=== PATIENT | male | born 1940 ===

== ENCOUNTER 2018-04-22 05:28 | Inpatient (IN) | payer OTHER ==
--- NOTE | 2018-04-10 13:53 | GHP ---
[f rep st] PREOP HISTORY AND PHYSICAL DATE OF ADMISSION: 04/22/2018 He will be an a.m. admission for surgery on April 22, 2018. PROBLEM: Right hip severe degenerative arthritis. HISTORY OF PRESENT ILLNESS: The patient is a 77-year-old man admitted for a right total hip arthropl asty. He has had progressive pain in the right hip for the past 2 or 3 years. He has seen several d octors who told him he needed a total hip replacement. He has been living with the pain. His activi ties are now significantly restricted because of the pain. He has trouble putting on his shoes and s ocks. He has tried various conservative measures, but the pain has been progressive. His quality of life has been severely affected. He is admitted for a right total hip arthroplasty. PAST MEDICAL HISTORY: Good general health. No history of heart disease, DVT, hepatitis, sleep apnea , or bleeding problems. CURRENT MEDICATIONS: Aspirin 325 mg p.o. daily. Flomax daily. ALLERGIES: Drug allergy: None. Metal allergy: None. Latex allergy: None. SOCIAL HISTORY: The patient is a retired [employer] professor. He does not smoke cigarettes and d rinks wine daily. FAMILY HISTORY: Positive for heart disease. PHYSICAL EXAMINATION: VITAL SIGNS: Height 6 feet, weight 200 pounds, BMI 27.1. EYES: He has had b ilateral cataract surgery. Pupils are round and reactive. MOUTH: Good oral hygiene. No loose teet h. CHEST: Clear. HEART: Regular rhythm, no murmurs. EXTREMITIES: Pertinent findings are limited to his right hip. He has full hip extension and 100 degrees of flexion, 30 degrees of external rota tion, 0 degrees of internal rotation, abduction 5 degrees. IMAGING: His films show very severe degenerative arthritis of the right hip. He is bone on bone. H e has eroded and flattened his femoral head. Extensive osteophytes are present. He is a few millime ters short on the right. He has mild degenerative arthritis in his left hip. IMPRESSION ON ADMISSION: Right hip advanced degenerative arthritis. PLAN: He will undergo a right total hip arthroplasty. The surgery has been described to him, includ ing the risks, complications, expectations, and recovery time. I have discussed with him the risk of dislocation, leg length inequality, infection, and sciatic nerve injury. All his questions have bee n answered, and he consents to surgery. [facility] /[id number]/MODL
[~2018-04-22 05:28] MED LIST: POVIDONE-IODINE 20 ML in SODIUM CL IRRIG SOLUTION 500 ML IRR ONE; ROPIVACAINE 0.2% 80 MG, EPINEPHrine 0.2 MG, KETOROLAC TROMETHAMINE 30 MG in SYRINGE 0 ML IU ONE; TRANEXAMIC ACID 1,000 MG in NS 100 ML IV ONE
[2018-04-22] MEDS ORDERED: GABAPENTIN 300 MG CAP PO ONE (05:46)
[2018-04-22] MEDS ORDERED: ACETAMINOPHEN 325 MG TAB PO ONE (05:46)
[2018-04-22] MEDS ORDERED: DEXAMETHASONE 4 MG/ML VIAL IVP ONE (05:46)
[2018-04-22] MEDS ORDERED: ONDANSETRON 4 MG/2 ML VIAL IVP ONE (05:46)
[2018-04-22] MEDS ORDERED: FAMOTIDINE 20 MG TAB PO ONE (05:46)
[2018-04-22] MEDS ORDERED: ceFAZolin 2 GM/DEXTROSE 100 ML IV ONE (05:46)
[2018-04-22] MEDS ORDERED: LR 1,000 ML IV ONE ×2 (05:51→06:03)
[2018-04-22] MEDS ORDERED: DEXAMETHASONE 4 MG/ML VIAL ONE (06:30)
[2018-04-22] MEDS ORDERED: ceFAZolin 1 GM/5 ML SYR ONE (06:43)
--- NOTE | 2018-04-22 07:00 | PDHPUP ---
History & Physical Update H&P update statement: This history and physical update is based on an assessment of the patient which was completed after admission or registration (within 24 hours), but prior to the surgery/procedure. H&P update: H&P reviewed & patient examined
--- NOTE | 2018-04-22 07:04 | PDANEPAE ---
ANE Past Medical History - Cardiovascular History Hx Hypertension: No Hx Arrhythmias: No Hx Chest Pain: No Hx Coronary Artery / Peripheral Vascular Disease: No Hx CHF / Valvular Disease: No Hx Palpitations: No - Pulmonary History Hx COPD: No Hx Asthma/Reactive Airway Disease: No Hx Recent Upper Respiratory Infection: No Hx Oxygen in Use at Home: No Hx Sleep Apnea: No Sleep Apnea Screening Result - Last Documented: Negative - Neurologic History Hx Cerebrovascular Accident: No Hx Seizures: No Hx Dementia: No - Endocrine History Hx Diabetes: No - Renal History Hx Renal Disorders: Yes Renal History Comment: BPH - Liver History Hx Hepatic Disorders: No - Neurological & Psychiatric Hx Hx Neurological and Psychiatric Disorders: No - Cancer History Hx Cancer: No - Congenital Disorder History Hx Congenital Disorders: No - GI History Hx Gastrointestinal Disorders: No - Other Health History Other Health History: WEARS GLASSES - Chronic Pain History Chronic Pain: Yes (RIGHT HIP) - Surgical History Prior Surgeries: RIGHT HAND REPAIR 3-4 YRS AGO ANE Review of Systems Review of Systems: - Exercise capacity METS (RN): 4 METS ANE Patient History - Allergies Allergies/Adverse Reactions: No Known Allergies Allergy (Verified 04/11/18 14:39) - Home Medications Home Medications: Aspirin [Aspirin 81mg (*)] 81 mg PO DAILY 04/10/18 [Last Taken 03/22/18] Tamsulosin HCl [Flomax 0.4 MG (*)] 0.4 mg PO DAILY 04/10/18 [Last Taken 04/22/18 ] - NPO status NPO Since - Liquids (Date): 04/21/18 NPO Since - Liquids (Time): 20:30 NPO Since - Solids (Date): 04/21/18 NPO Since - Solids (Time): 20:00 - Smoking Hx Smoking Status: Never smoked - Family Anes Hx Family Hx Anesthesia Complications: NONE ANE Labs/Vital Signs - Vital Signs Blood Pressure: 109/67 Heart Rate: 65 Respiratory Rate: 16 O2 Sat (%): 93 Height: 182.88 cm Weight: 90.718 kg ANE Physical Exam - Airway Mallampati Score: Class 2 - ASA Status ASA Status: II ANE Anesthesia Plan Anesthesia Plan: spinal
[2018-04-22] MEDS ORDERED: PROPOFOL/EMULSION 500 MG/50 ML BOTTLE IV ONE (07:08)
[2018-04-22] MEDS ORDERED: MIDAZOLAM 2 MG/2 ML VIAL ONE (07:08)
[2018-04-22] MEDS ORDERED: ROPIVACAINE 0.2% 80 MG, EPINEPHrine 0.2 MG, KETOROLAC TROMETHAMINE 30 MG in SYRINGE 0 ML IU ONE (07:15)
[2018-04-22] MEDS ORDERED: POVIDONE-IODINE 20 ML in SODIUM CL IRRIG SOLUTION 500 ML IRR ONE (07:15)
[2018-04-22] MEDS ORDERED: TRANEXAMIC ACID 1,000 MG in NS 100 ML IV ONE (07:15)
[2018-04-22] MEDS ORDERED: PHENYLEPHRINE HCL 100 MCG/ML SYR ONE (07:37)
[2018-04-22] MEDS ORDERED: ePHEDrine SULFATE 25 MG/5 ML SYR ONE (08:08)
[2018-04-22] MEDS ORDERED: PROPOFOL 200 MG/20 ML VIAL ONE ×2 (08:35→09:07)
--- NOTE | 2018-04-22 09:47 | POSTOPPROG ---
Post Op Note Date of Operation: 04/22/18 Surgeon: Luis Gan Belt Molder: Rosana Anesthesiologist: Isi Anesthesia: IV Sedation, Spinal Post-op Diagnosis: Right hip severe degenerative arthritis Procedure: Right total hip arthroplasty Inf/Abcess present in the surg proc area at time of surgery?: No EBL: 100-500
[2018-04-22] MEDS ORDERED: PROMETHAZINE HCL 25 MG/ML INJ IVP PRN ×2 (10:03→10:04)
[2018-04-22] MEDS ORDERED: PHENYLEPHRINE HCL 100 MCG/ML SYR IVP PRN (10:03)
[2018-04-22] MEDS ORDERED: fentaNYL 100 MCG/2 ML INJ IVP PRN (10:03)
[2018-04-22] MEDS ORDERED: epHEDrine SULFATE 10 MG/ML SYR IVP PRN (10:03)
[2018-04-22] MEDS ORDERED: NALOXONE HCL 0.4 MG/ML INJ IVP PRN (10:03)
[2018-04-22] MEDS ORDERED: ONDANSETRON 4 MG/2 ML VIAL IVP PRN ×2 (10:03→10:04)
[2018-04-22] MEDS ORDERED: HYDROmorphONE/DILAUDID 2 MG/ML INJ IVP PRN (10:03)
[2018-04-22] MEDS ORDERED: METOCLOPRAMIDE 10 MG/2 ML VIAL IVP PRN ×2 (10:03→10:04)
[2018-04-22] MEDS ORDERED: LR 500 ML IV PRN (10:03)
[2018-04-22] MEDS ORDERED: PROMETHAZINE HCL 25 MG SUPPR PR PRN (10:04)
[2018-04-22] MEDS ORDERED: LACTULOSE 20 GM/30 ML UDCUP PO PRN (10:04)
[2018-04-22] MEDS ORDERED: traMADol 50 MG TAB PO PRN (10:04)
[2018-04-22] MEDS ORDERED: diphenhydrAMINE 25 MG CAP PO PRN (10:04)
[2018-04-22] MEDS ORDERED: NS 500 ML IV PRN (10:04)
[2018-04-22] MEDS ORDERED: DIPHENOXYLATE/ATROPINE LOMOTIL 1 TAB PO PRN (10:04)
[2018-04-22] MEDS ORDERED: BISACODYL 10 MG SUPP PR PRN (10:04)
[2018-04-22] MEDS ORDERED: POLYETHYLENE GLYCOL 3350 17 GM PKT PO PRN (10:04)
[2018-04-22] MEDS ORDERED: ONDANSETRON DISINTEGRATING 4 MG TAB PO PRN (10:04)
[2018-04-22] MEDS ORDERED: TEMAZEPAM 15 MG CAP PO PRN (10:04)
[2018-04-22] MEDS ORDERED: oxyCODONE IR 5 MG TAB PO PRN (10:04)
[2018-04-22] MEDS ORDERED: CYCLOBENZAPRINE 10 MG TAB PO PRN (10:04)
[2018-04-22] MEDS ORDERED: MAGNESIUM HYDROXIDE 30 ML UDCUP PO PRN (10:04)
--- NOTE | 2018-04-22 10:05 | POSTANESTH ---
Post Anesthetic Evaluation Cardiovascular Status: Normal, Stable Respiratory Status: Normal, Stable Level of Consciousness/Mental Status: Can Participate in Eval Pain Control: Adequate, Prn Tx Ordered Nausea/Vomiting Control: Adequate, Prn Tx Ordered Complications Possibly Related to Anesthesia: None Noted
[2018-04-22] MEDS ORDERED: LR 1,000 ML IV SCH (10:30)
--- NOTE | 2018-04-22 10:47 | GOP ---
[f rep st] OPERATIVE REPORT DATE OF OPERATION: 04/22/2018 SURGEON: Luis Gan MD CRITICAL CARE CNS: TRE Soni CFA ANESTHESIA: A combination of Marcaine, spinal, and IV sedation. ANESTHESIOLOGIST: Syd Collazo MD PREOPERATIVE DIAGNOSIS: Right hip severe degenerative arthritis. POSTOPERATIVE DIAGNOSIS: Right hip severe degenerative arthritis. PROCEDURE PERFORMED: Right total hip arthroplasty, ceramic femoral head on highly cross-link polyeth ylene cup liner. FINDINGS: ESTIMATED BLOOD LOSS: About 500 mL. DESCRIPTION OF PROCEDURE: The patient was given 2 g of IV Ancef preoperatively within 60 minutes of surgery. He also received IV tranexamic acid at a dose of 1000 mg. He was placed on the operating r oom table and given spinal anesthesia with Marcaine by Dr. Syd Collazo. He was then placed supine and given IV sedation. A Cheney catheter was not used. He wore a VICTOR MANUEL stocking and SCD on the nonoper ative leg. He was rolled to the left lateral decubitus position. The position was secured with the pegboard table attachment. An axillary roll was used, and all pressure points were carefully padded. I was careful to lock his pelvis in a rigid vertical position. His perineum was isolated with plas tic adhesive drapes. The right hip and right lower extremity were prepped with ChloraPrep. They wer e draped free using sterile sheets, stockinette, and Ioban plastic adhesive drapes. The World [employer] Organization time-out was performed to verify the correct surgical side and site, an d the correct patient identity. The Adams time-out was also performed. I made a 5-inch straight oblique posterolateral hip skin incision. Subcutaneous tissues were sharply divided, and hemostasis was obtained using electrocautery. His fascia isamar was identified and split proximally along the axis of its fibers. I then curved posteriorly and proximally, and split the fa scia of the gluteus isis and bluntly split the muscle fibers in line with their orientation. The Charnley self-retaining retractor was inserted. His sciatic nerve was located, partially exposed, an d protected throughout the procedure. The external rotators and the posterior hip capsule were divid ed as separate layers at the base of the femoral neck, tagged, and reflected posteriorly. A smooth 8 -inch Steinmann pin was inserted vertically into the ilium, superior to the acetabulum. An 8-inch dr ill bit was inserted vertically into the greater trochanter and parallel to the first pin. The dista nce between the 2 was measured for leg length reference. His femoral head was dislocated posteriorly . Severe degenerative changes were present on the femoral head. His femoral neck was osteotomized a t the appropriate level and inclination. I was careful to preserve all the posterior capsule and most of the anterior capsule. The remnant of his labrum was excised. I prepared the femur first. This allowed me to magistrate judge the amount of natural femoral neck anteversion. This in turn, allowed me to later determine the correct amount of cup anteversion. He only had nito roximately 5 degrees of natural femoral neck anteversion. This was important later on for cup positi oning. The canal was opened laterally with a box chisel. I used the power starter reamer and then h and broached sequentially up to size 6. I was using the Skye Accolade 2 high offset size 6 broach as a trial stem. I was careful to lateralize adequately. Appropriate retractors were inserted to expose the acetabulum. The acetabulum was reamed sequentiall y to size 57 mm. I selected the Skye 58 mm cluster hole Trident 2 Tritanium hemispherical shell. This was tapped securely into place in the proper degree of inclination and anteversion. I tried to antevert the cup a little more than usual in order to compensate for the lack of anteversion on the femoral neck. I performed a series of trial reductions to check length and stability. I had a diffi cult time achieving stability, even though I was lengthening him a few mm. I tried the 10 degree lip ped liner. I ended up taking the intraoperative cross-table AP pelvis. It shows good sizing and pos ition of the stem. I felt that I could antevert the cup more, so I went back and repositioned the cu p in more anteversion and a slightly more closed angle. I still could not achieve the stability I wa nted with varying neck lengths. I took a 2nd intraoperative AP cross table x-ray. Based on that inf ormation, I went back and added a little more anteversion to the cup. With the +5 mm neck length wit h a 36 mm head and a 10 degree trial liner, I had adequate posterior stability. I also checked to eleazar lal sure he did not dislocate anteriorly because I had more than average cup anteversion. I recognize d that I was over lengthening him by a few mm. However I felt that was important in order to achieve stability. The 10 degree lip Skye X3 highly cross-linked polyethylene liner was inserted and tapped securely into place. I dialed the overhang so that it was directly posterior. I also removed some anterior o steophytes and some posterior inferior osteophytes, and made sure there was no anterior impingement w tawanda was [place] the femoral head out of the socket. The Skye Accolade 2 high offset stem in a s ize 6 was inserted press-fit and was very tight. I did 1 final trial reduction and confirmed that th e +5 mm neck length with a 36 mm head was the proper combination. I was using all of the options martha ilable to achieve adequate stability, including the 10 degree lip liner, a 36 mm head and a high offs et stem. The Skye Biolox Delta ceramic head with an outside diameter of 36 mm and a neck length o f +5 mm was tapped securely onto the clean trunnion. The acetabulum was irrigated, cleaned, and the hip was reduced 1 final time. I checked to be sure that he had good anterior and posterior stability . 40 mL of the joint anesthetic cocktail were injected into the capsule, the deep musculature, and the subcutaneous tissues along the skin edges. The joint was thoroughly irrigated 1 final time with a di lute Betadine solution. His sciatic nerve was reinspected and looked unharmed. The external rotators and the posterior hip capsule were repaired in separate layers with #2 FiberWir e sutures through drill holes in the greater trochanter. The fascia isamar was closed first with 2 fig [id number] #2 FiberWire sutures, followed by a running #2 barbed Ethicon Stratafix PDO suture. The subcutaneous tissues were closed with a running 0 barbed Ethicon Stratafix Monoderm suture. The ski n was closed with a running 3-0 barbed Ethicon Stratafix Monoderm subcuticular suture. The skin edge s were reapproximated and sealed with Dermabond glue. The wound was covered with a large piece of wa terproof Mepilex surgical dressing. The Mepilex sacral dressing was also applied. A long-leg VICTOR MANUEL stocking and SCD were applied to his right lower extremity. He wore a stocking and SC D on the opposite leg during the procedure. An abduction pillow was placed between his knees. He wa s awakened from anesthesia and rolled to the supine position on his [facility]. He was taken to PACU in satisfactory condition. There were no recognized intraoperative complications. COUNT: The sponge and needle count were correct on 2 occasions. I used a [place] Tritanium hemispherical Trident 2 cluster hole acetabular shell with an outside diam eter of 58 mm. The liner was a Skye X3 10-degree lipped highly cross-linked liner with an inside diameter of 36 mm. The femoral component was a press-fit [place] high offset Accolade 2 stem in a si ze 6. The femoral head was a Skye Biolox Delta ceramic head with a +5 mm neck length and a 36 mm outside diameter. Herber Vargas and Tucker Victor acted as surgical assistants. Their assistance was a medical [facility] for safe completion of the procedure. /[id number]/MODL
[2018-04-22] MEDS: ACETAMINOPHEN 325 MG TAB PO SCH ×2 (12:33→17:58)
[2018-04-22] MEDS: KETOROLAC 15 MG/1 ML SDV IVP SCH ×2 (12:33→17:58)
--- NOTE | 2018-04-22 14:05 | PDMN ---
Medical Necessity Medical necessity: IP surgery per [facility] cpt 04177
[2018-04-22] MEDS: ceFAZolin 2 GM/DEXTROSE 100 ML IV SCH (15:37)
[2018-04-22] MEDS: ASPIRIN 325 MG TAB PO SCH (21:21)
[2018-04-22] MEDS: SENNOSIDES/DOCUSATE SODIUM TAB PO SCH (21:21)
[2018-04-22] MEDS: FAMOTIDINE 20 MG TAB PO SCH (21:21)
[2018-04-23] MEDS: KETOROLAC 15 MG/1 ML SDV IVP SCH ×2 (00:26→06:36)
[2018-04-23] MEDS: ACETAMINOPHEN 325 MG TAB PO SCH ×2 (00:26→06:35)
[2018-04-23] MEDS: ceFAZolin 2 GM/DEXTROSE 100 ML IV SCH (00:32)
[2018-04-23 07:55] VITALS: BP 101/62
[2018-04-23] MEDS: FAMOTIDINE 20 MG TAB PO SCH (08:15)
[2018-04-23] MEDS: SENNOSIDES/DOCUSATE SODIUM TAB PO SCH (08:16)
[2018-04-23] MEDS: ASPIRIN 325 MG TAB PO SCH (08:16)
[2018-04-23] MEDS ORDERED: TAMSULOSIN HCL 0.4 MG CAP PO SCH (09:00)
[2018-04-23] MEDS ORDERED: FERROUS SULFATE 140 MG TAB.ER PO SCH (09:00)
--- NOTE | 2018-04-23 10:30 | SOAPPROG ---
SOAP Progress Note Assessment/Plan: Assessment: Afebrile. Up and walking in roque. Has done stairs. Min pain. Dsg is dry. H/H is good. Needed cath 1X in PACU. Voiding spont since. Post op films look good. Sciatic nerve intact. Plan: DC today. 04/23/18 10:29 Objective: Vital Signs Temp Pulse Resp BP Pulse Ox 37.1 C 96 16 101/62 92 04/23/18 03:36 04/23/18 07:52 04/23/18 07:52 04/23/18 07:52 04/23/18 07:52 Laboratory Results 04/23/18 04:48 04/22/18 04/23/18 04/24/18 05:59 05:59 05:59 Intake Total 2200 Output Total 840 300 Balance 1360 -300 ICD10 Worksheet Patient Problems: Problems Problem Status Onset Osteoarthritis of right hip Acute
--- NOTE | 2018-04-23 10:49 | GDS ---
[f rep st] DISCHARGE SUMMARY ADMISSION DIAGNOSIS: Right hip severe degenerative arthritis. DISCHARGE DIAGNOSIS: Right hip severe degenerative arthritis. OPERATION PERFORMED: 04/22/2018, a right total hip arthroplasty. POSTOPERATIVE COMPLICATIONS: None. CONDITION ON DISCHARGE: Improved. DESCRIPTION OF HOSPITAL COURSE: The patient was admitted to the hospital on the morning of surgery. The same day, under a combination of Marcaine, spinal, and IV sedation, he underwent a right total h ip arthroplasty. Postoperatively, he was treated with multimodal DVT prophylaxis, including aspirin. On the first postoperative day, his hemoglobin and hematocrit were 11.7 and 33.0. He required blad monica catheterization 1 time in the PACU, but was able to void spontaneously after that. He was seen b y Physical Therapy and made rapid progress with ambulation and stairs. By the time of discharge, he was afebrile, his wound was clean and dry, and he was independent walking with a walker. DISPOSITION: The patient is discharged to his home. He will go to outpatient physical therapy. He has prescriptions for oxycodone and tramadol for pain control. Use Celebrex 200 mg p.o. daily for 21 days. Aspirin 325 mg daily for 21 days. I will see him back in the office on 05/12/2018. If there are any problems, he is to call me at the office. /[id number]/MODL
--- NOTE | 2018-04-23 11:53 | ASMTCMCOM ---
CM Note CM Note Notes: PT rec home. Pt medically stable for d/c, no CM d/c needs identified. Date Signed: 04/23/2018 11:53 AM Electronically Signed By:NANY Márquez
== END 2018-04-23 11:04 | disposition home or self-care (01) | DRG 470 ==
LOC: F3N 05:28
PROVIDERS: ADMIT Orthopaedic Surgery; ATTEND Orthopaedic Surgery
PROC: 0SR904Z Replacement of Right Hip Joint with Ceramic on Polyethylene Synthetic Substitute, Open Approach (ICD-10-PCS; principal; 2018-04-22 07:15)
DX: M16.11 Unilateral primary osteoarthritis, right hip (principal); N40.0 Benign prostatic hyperplasia without lower urinary tract symptoms
CPT/HCPCS: 97116-GP; 97161-GP; 97165-GO; 97530-GP; 97535-GO; G8978-GP-CJ; G8979-GP-CI; G8980-GP-CI; G8987-GO-CI; G8988-GO-CI; G8989-GO-CI; J0171; J0690; J1100; J1885; J2250; J2370; J2405; J2704; J2795